=== PATIENT | female | born 1995 | race Caucasian/White ===

== ENCOUNTER 2018-11-07 11:26 | Emergency (ER) | payer SELFPAY ==
--- NOTE | 2018-11-07 11:32 | NUR ---
Patient left without being triaged, stating she is [facility] member and will go there to be seen.
== END 2018-11-07 11:35 | disposition left against medical advice (07) ==
LOC: ER 11:26
DX: Z53.21 Procedure and treatment not carried out due to patient leaving prior to being seen by health care provider (principal)